=== PATIENT | female | born 1960 | race Caucasian/White ===

== ENCOUNTER → 2017-10-17 | Outpatient (CLI) | payer MEDICARE ==
--- NOTE | 2017-10-17 13:21 | CT ---
EXAMINATION TYPE: CT chest wo con DATE OF EXAM: 10/17/2017 COMPARISON: None HISTORY: Other dyspnea CT DLP: 281 mGycm High-resolution noncontrast CT of the chest was performed with the patient in the prone and supine po sitions. Lung and mediastinal window settings are submitted. The lungs appear to be well-aerated. I do not see evidence for fibrotic change. There is no eviden ce for bronchiectasis, groundglass infiltrate, nodule or mass. No pleural effusion is identified. I do not see evidence for hilar or mediastinal mass or adenopathy. IMPRESSION: No significant abnormality is seen. Correlate clinically.
== END | disposition home or self-care (01) ==
LOC: RADCTMAIN 12:29
PROVIDERS: ATTEND Internal Medicine Critical Care Medicine
DX: R06.09 Other forms of dyspnea (principal)
CPT/HCPCS: 71250

== ENCOUNTER 2018-07-30 08:21 | Day surgery (SDC) | payer MEDICARE ==
[~2018-07-30 08:21] MED LIST: Pre Op ABX Message 1 EACH MISC MISCELLANE ONE
[2018-07-30 09:07] VITALS: RESP 16; TEMP 98.1
[2018-07-30] MEDS ORDERED: LIDOCAINE 1% 20 ML VIAL (10MG/ML) FOR IV START SQ ONE (09:07)
[2018-07-30] MEDS ORDERED: LACTATED RINGERS 1,000 ML IV ONE (09:07)
[2018-07-30] MEDS ORDERED: PROPOFOL 10 MG/ML 20 ML VIAL IV ONE (09:18)
[2018-07-30] MEDS ORDERED: LIDOCAINE 1% INJ 10MG/ML (20 ML MDV) ONE (09:18)
[2018-07-30] MEDS ORDERED: MIDAZOLAM 2 MG/2 ML VIAL ONE (09:18)
[2018-07-30] MEDS ORDERED: fentaNYL (PF) 50 MCG/ML 2 ML AMP ONE (09:18)
[2018-07-30] MEDS ORDERED: BUPIVACAINE (PF) 0.5% 30 ML VIAL SQ ONE (09:20)
[2018-07-30] MEDS ORDERED: LIDOCAINE 2% INJ 20 MG/ML SQ ONE (09:20)
[2018-07-30 09:21] LABS: Glucose,Whole Blood 105 mg/dL (75-99)
[2018-07-30] MEDS ORDERED: MIDAZOLAM 2 MG/2 ML VIAL IV PRN (09:54)
[2018-07-30] MEDS ORDERED: ONDANSETRON 4 MG/2 ML VIAL IVP ONE (09:54)
[2018-07-30] MEDS ORDERED: DEXAMETHASONE SOD PHOSPHATE 10 MG/ML 1 ML VIAL IV ONE (09:54)
[2018-07-30] MEDS ORDERED: LACTATED RINGERS 1,000 ML IV SCH (09:54)
[2018-07-30] MEDS ORDERED: HYDROmorphone 0.5 MG/0.5 ML SYRINGE IVP PRN (09:54)
[2018-07-30] MEDS ORDERED: SCOPOLAMINE 1.5MG/72HR PATCH TRANSDERM ONE (09:54)
[2018-07-30 10:08] LABS: Glucose,Whole Blood 122 mg/dL (75-99)
[2018-07-30 10:19] VITALS: PULSE 75
[2018-07-30 10:23] VITALS: BP 132/68
--- NOTE | 2018-07-30 22:49 | OP ---
OPERATIVE REPORT DATE OF SURGERY: 07/30/2018 PREOP DIAGNOSIS: Bilateral middle trigger fingers. POSTOPERATIVE DIAGNOSIS: Bilateral middle trigger fingers. PROCEDURES: Bilateral middle trigger finger release. The following procedure was done identically for each hand with a separate setup and a separate injection of 5 mL combinations Xylocaine and Marcaine both without epinephrine. PROCEDURE: A transverse incision was made in the proximal skin crease of the middle finger. Blunt dissection was taken through the subcutaneous tissue to identify the neurovascular bundles. They were kept in view and gently retracted out of harm?s way while a longitudinal release of the A1 bhavna was performed. The flexor pollicis longus was examined and slight swelling was noted but the tendon was intact. The tendon was gently retracted from the wound to ensure no adhesion. The wound was then thoroughly irrigated, tourniquet released. Hemostasis was acquired and the skin was closed with 5-0 nylon suture. Soft bulky dressing applied. The patient was taken to the recovery room in satisfactory condition. MMMAXX / BRIANNAN: [id number] /
== END 2018-07-30 10:38 | disposition home or self-care (01) ==
LOC: OR 08:21
PROVIDERS: ATTEND Orthopaedic Surgery Hand Surgery
DX: M65.332 Trigger finger, left middle finger (principal); M65.331 Trigger finger, right middle finger; E03.9 Hypothyroidism, unspecified; I11.9 Hypertensive heart disease without heart failure; E11.9 Type 2 diabetes mellitus without complications; J98.4 Other disorders of lung; H91.90 Unspecified hearing loss, unspecified ear; K21.9 Gastro-esophageal reflux disease without esophagitis; F32.9 Major depressive disorder, single episode, unspecified; E66.01 Morbid (severe) obesity due to excess calories; J44.9 Chronic obstructive pulmonary disease, unspecified; M34.9 Systemic sclerosis, unspecified; E78.5 Hyperlipidemia, unspecified; K85.90 Acute pancreatitis without necrosis or infection, unspecified; Z79.4 Long term (current) use of insulin; Z79.899 Other long term (current) drug therapy; Z79.890 Hormone replacement therapy; Z68.42 Body mass index [BMI] 45.0-49.9, adult
CPT/HCPCS: 26055; J2001 ×2; J2250; J3010; J2704

== ENCOUNTER 2022-10-24 05:48 | Day surgery (SDC) | payer MEDICARE ==
[2022-10-19 14:41] VITALS: BMI 48.5
[~2022-10-24 05:48] MED LIST changes: +ACETAMINOPHEN TAB 500 MG TAB PO PRN; +GABAPENTIN 300 MG CAP PO PRN; +MELOXICAM 7.5 MG TAB PO PRN; -Pre Op ABX Message 1 EACH MISC MISCELLANE ONE; +TRANEXAMIC 1,000 MG/100ML-NACL 1,000 MG in SALINE 1 100ML.BAG IVPB PRN; +ceFAZolin 3 GM in SODIUM CHLORIDE 0.9% 100 ML IVPB PRN
[2022-10-24] MEDS ORDERED: ONDANSETRON 4 MG/2 ML VIAL IVP ONE (05:50)
[2022-10-24] MEDS ORDERED: DEXAMETHASONE SOD PHOSPHATE 4 MG/ML 1 ML VIAL IV ONE (05:50)
[2022-10-24] MEDS ORDERED: LIDOCAINE 1% (10MG/ML) FOR IV START INTRADERMA PRN (05:50)
[2022-10-24] MEDS: LACTATED RINGERS 1,000 ML IV SCH (05:59)
[2022-10-24 06:32] LABS: Glucose,Whole Blood 165 mg/dL (70-110)
[2022-10-24] MEDS ORDERED: MIDAZOLAM 2 MG/2 ML VIAL IVP ONE (06:42)
[2022-10-24] MEDS ORDERED: MIDAZOLAM 2 MG/2 ML VIAL IV PRN (07:00)
[2022-10-24] MEDS ORDERED: HYDROmorphone 0.5 MG/0.5 ML SYRINGE IVP PRN ×2 (07:00→09:13)
[2022-10-24] MEDS ORDERED: ceFAZolin 1,000 MG in SODIUM CHLORIDE 0.9% 1,000 ML IRRIGATION ONE (07:02)
[2022-10-24] MEDS ORDERED: LACTATED RINGERS 1,000 ML IV ONE (08:30)
[2022-10-24 09:13] LABS: Glucose,Whole Blood 238 mg/dL (70-110)
[2022-10-24] MEDS ORDERED: NA PHOS,M-B/NA PHOS,DI-BA 133 ML ENEMA RECTAL PRN (09:13)
[2022-10-24] MEDS ORDERED: ONDANSETRON 4 MG/2 ML VIAL IVP PRN (09:13)
[2022-10-24] MEDS ORDERED: HYDROmorphone 1 MG/ML 1 ML SYRINGE IVP PRN (09:13)
[2022-10-24] MEDS ORDERED: bisacodyL 10 MG SUPP RECTAL PRN (09:13)
[2022-10-24] MEDS ORDERED: MAGNESIUM HYDROXIDE 2,400 MG/30 ML CUP PO PRN (09:13)
[2022-10-24] MEDS ORDERED: NALOXONE 0.4 MG/ML 1 ML VIAL IV PRN (09:13)
[2022-10-24] MEDS ORDERED: HYDROcodone/APAP 7.5-325MG 1 EACH TAB PO PRN (09:15)
[2022-10-24] MEDS ORDERED: ROPIVACAINE 1,100 MG, SODIUM CHLORIDE 0.9% 500 ML 330 ML, EMPTY PAIN BALL 1 EACH MISCELLANE PRN ×2 (09:15)
[2022-10-24] MEDS ORDERED: INSULIN ASPART (NovoLOG) 100 UNIT/ML VIAL SQ ONE ×4 (09:49→18:29)
--- NOTE | 2022-10-24 11:25 | P.OP ---
Date of Procedure: 10/24/22 Preoperative Diagnosis: Severe osteoarthritis left knee Postoperative Diagnosis: Severe osteoarthritis left knee Procedure(s) Performed: Robotic-assisted left total knee arthroplasty with the [employer] robotic system Implants: 1. [employer] triathlon cruciate retaining femoral component left size 4 2. [employer] triathlon total knee universal tibial baseplate size 4 3. Jared triathlon X3 tibial bearing insertCS size 4, 9 mm 4. Jared triathlon X3 asymmetric patella size A 32, 10 mm 5. Palacos R bone cement 6. Articulation is cobalt chrome on polyethylene Anesthesia: spinal Surgeon: Saúl Faye Buffer Operator #1: Dai Rosa Estimated Blood Loss (ml): 40 Pathology: none sent Condition: stable Disposition: PACU Indications for Procedure: The patient's knee is end-stage, and conservative management has failed. The operation of knee replacement has been discussed at length in the office, as well as potential risks and complications. These are inclusive of, but not limited to: Infection, bleeding, scarring, discomfort, stiffness, blood vessel and nerve damage, need for further surgery, failure to relieve symptoms, persistence, recurrence, or worsening of problems, loosening, dislocation, wear, blood clot, pulmonary embolism, , gait dysfunction, stiffness, and other risks as discussed in the office. Patient elects to proceed and the consent form has been signed. Operative Findings: The operative findings are consistent with severe osteoarthritis of the left knee Description of Procedure: The patient was seen in the preoperative area, the consent was reviewed and the operative site was marked with a skin marker. The patient verified the procedure and the operative site. An adductor canal pain catheter and an iPACK block were placed by anesthesia in the preoperative area. The patient was then brought to the operating room and positioned on the operating room table in the supine position. Preoperative antibiotics and a gram of tranexamic acid were given intravenously. A spinal anesthetic was administered by the anesthesia department. Care was taken to make sure that all pressure points were adequately padded. A tourniquet was placed on the upper thigh and the lower extremity was prepped with ChloraPrep and draped in usual sterile fashion. A universal time-out was then performed which confirmed the patient's name, surgical site, ALLERGIES, and consent. The lower extremity was then exsanguinated and tourniquet was inflated to 250 mmHg. A standard anterior midline approach to the knee was performed. The skin and subcutaneous tissue were sharply dissected down to the patellar tendon. A medial parapatellar arthrotomy was then performed. The knee was then extended, the patellar was everted, and the knee was flexed. The infra-patellar fat pad was removed in order to enhance exposure. The anterior horns of both menisci were excised, and a release was performed to the posterior medial aspect of the knee. On gross visual inspection, there was complete loss of articular cartilage in the medial and patellofemoral joint spaces. There was also significant cartilage damage in the lateral compartment. There were multiple periarticular osteophytes globally about the knee. 2 Steinmann pins were placed in the distal medial femur for the robotic tracking device. An additional 2 Steinmann pins were placed in the proximal tibia for the tibial robotic tracking device. Next, the knee was then registered with the NoDaysOff device using the appropriate tracking devices and protocols. Next, using the Jameson robotic arm, the cuts for the femur and tibia were performed. The remaining bone and osteophytes were then removed with a Ronguer. Any remaining menisci or bone was also removed. The femoral trial was placed. The tibial trial was placed with the appropriate- sized insert. The knee was able to fully extend and flex to 130 and was stable throughout all range of motion. The balance in the knee was also checked with the NoDaysOff robotic device. The knee was then extended and the patella was everted. Patella was then measured, and then using an osteotomy guide, the patella was cut at the appropriate level. The patellar component was sized. The patellar drill guide was placed and the patella was drilled. The patella trial was then placed. The knee was then taken through range of motion with the patella trial and the patella tracked normally using the no thumbs technique. The patella trial was then removed. The knee was then flexed and lug holes were drilled through the femoral trial and the femoral trial was then removed. The tibial was then re-exposed, and the tibial broach guide was then pinned in place after it was set for the appropriate rotation to allow for the most coverage without overhang. The tibia was then reamed and broached. The tracking devices and the Steinmann pins were then removed from the distal femur and proximal tibia. The cut surfaces of bone were then irrigated with pulsatile lavage. The knee was also irrigated with Irrisept solution. The components were then opened, the cement was mixed. Cement was placed on the backside of the femoral, tibial, and patellar components. Cement was then applied to the tibial surface and pressurized into the surface using finger pressurization technique. The tibial component was then applied and excess ce ment was removed after it was impacted securely noted to be flush with the cut surface. In similar fashion, the cement was applied to the cut femoral surface, pressurized and using finger pressurization the component was impacted in place. Excess cement was removed. The polyethylene spacer was then implanted and locked into position. Patellar component was then applied in a similar technique and the patellar clamp was used to hold patella in place while the cement hardened. The knee was held in full extension while the cement hardened. Once the cement had fully hardened, the knee was reinspected. Any other cement extrusion was removed the final range of motion testing showed range of motion from 0-130 with excellent stability, both medial and laterally and appropriate alignment of the leg. Patella tracked normally[default value] After the cemented hardened, the tourniquet was released and hemostasis was obtained. A second gram of transexamic acid was given intravenously. The knee was again irrigated. The knee was again taken through range of motion and found to be stable throughout all range of motion of 0-130, and the patella tracked normally. The fascia was then closed with 0 Vicryl followed by #2 strata fix suture. The subcutaneous tissue was closed with 3-0 Vicryl and 3-0 strata fix. Exofin glue was used for the skin and placed with the knee in flexion. After the glue had dried, and Optafoam silver impregnated dressing was applied. A lightly compressive dressing was applied using web roll and Adolfo wrap. Patient was then transferred to the stretcher and taken to recovery room in stable condition. Sponge and needle counts were correct. The family assistant TYRONE Alcala was required due the complexity surgery and the need for a skilled surgical scrub tech. She assisted in positioning, draping, retraction, and closure of the wound.
[2022-10-24] MEDS ORDERED: HYDROmorphone 1 MG/ML 1 ML SYRINGE IVP ONE (12:21)
[2022-10-24 13:22] LABS: Glucose,Whole Blood 313 mg/dL (70-110)
--- NOTE | 2022-10-24 15:32 | P.ANPRN ---
Procedure Note - Anesthesia - Nerve Block Performed Left Adductor Canal Infusion Time Out Performed: Yes Date of Procedure: 10/24/22 Procedure Start Time: 06:41 Procedure Stop Time: 06:52 Location of Patient: PreOp Indication: Acute Post-Operative Pain, Requested by Surgeon Sedation Type: Sedate with meaningful contact maintained Preparation: Sterile Prep, Sterile Dressing Position: Supine Catheter: Indwelling Needle Types: Pajunk Needle Gauge: 21 Ultrasound used to visualize needle placement: Yes Ultrasound used to observe medication spread: Yes Blood Aspirated: No Pain Paresthesia on Injection Noted: No Resistance on Injection: Normal Image Stored and Saved: Yes Events: Uneventful and Well Tolerated (ropi .5% 20cc plus dexamethasone 4mg)
--- NOTE | 2022-10-24 15:34 | P.ANPRN ---
Procedure Note - Anesthesia - Nerve Block Performed Left iPack Single Time Out Performed: Yes Date of Procedure: 10/24/22 Procedure Start Time: 06:53 Procedure Stop Time: 06:55 Location of Patient: PreOp Indication: Acute Post-Operative Pain, Requested by Surgeon Sedation Type: Sedate with meaningful contact maintained Preparation: Sterile Prep Position: Supine Needle Types: Pajunk Needle Gauge: 21 Ultrasound used to visualize needle placement: Yes Ultrasound used to observe medication spread: Yes Blood Aspirated: No Pain Paresthesia on Injection Noted: No Resistance on Injection: Normal Image Stored and Saved: Yes Events: Uneventful and Well Tolerated (ropi .5% 20cc plus dexamethasone 4mg)
[2022-10-24] MEDS: HYDROcodone/APAP 7.5-325MG 1 EACH TAB PO PRN (16:02)
[2022-10-24] MEDS: ceFAZolin 3 GM in SODIUM CHLORIDE 0.9% 100 ML IVPB SCH ×2 (16:03→21:53)
[2022-10-24 18:11] LABS: Glucose,Whole Blood 429 mg/dL (70-110)
[2022-10-24] MEDS ORDERED: DEXTROSE 50% SYRINGE 50 ML IVP PRN ×2 (18:27)
[2022-10-24] MEDS: SODIUM CHLORIDE 0.9% 1,000 ML IV SCH (18:51)
--- NOTE | 2022-10-24 19:37 | P.CONS ---
History of Present Illness - Reason for Consult Consult date: 10/24/22 Medical management Requesting physician: Saúl Faye - Chief Complaint Left knee surgery - History of Present Illness This is a pleasant 62-year-old patient who follows with Dr. Aureliano Alejandro. Chronic stable medical conditions include asthma, diabetes, GERD, hyperlipidemia, obstructive sleep apnea uses CPAP, hypothyroid, scleroderma with no medications,. Patient has undergone left total knee arthroplasty. Postprocedure pain is controlled. No nausea vomiting. Later the nurse called me that patient's insulin pump was saying not working. An Accu-Chek's were reading 429. Review of systems: GEN.: None EYES: None HEENT: None NECK: None RESPIRATORY: None CARDIOVASCULAR: None GASTROINTESTINAL: None GENITOURINARY: None MUSCULOSKELETAL: Joint pains LYMPHATICS: None HEMATOLOGICAL: None PSYCHIATRY: None NEUROLOGICAL: None. Past medical history to include: Asthma, diabetes, GERD, hyperlipidemia, osteoarthritis, obstructive sleep apnea, hypothyroid, scleroderma, migraines, Lynette-en-Y surgery 15 years ago Social history: No smoking or alcohol. Physical examination: VITAL SIGNS: 97.8, 87, 18, 135/74, 99% on 2 L GENERAL: BMI 49.6, sitting on bed awake comfortable. EYES: Pupils equal. Conjunctiva normal. HEENT: External appearance of nose and ears normal, oral cavity grossly normal. NECK: JVD not raised; masses not palpable. HEART: First and second heart sounds are normal; no edema. LUNGS: Respiratory rate normal; clear to auscultation. ABDOMEN: Soft, nontender, liver spleen not palpable, no masses palpable. PSYCH: Alert and oriented x3; mood and affect normal. MUSCULOSKELETAL:No Clubbing/cyanosis;muscles-grossly intact. Dressing over the left knee. Evidence of OA. NEUROLOGICAL: Cranial nerves grossly intact; no facial asymmetry, power and sensation grossly intact. LYMPHATICS: No lymph nodes palpable in the axilla and neck INVESTIGATIONS, reviewed in the clinical context: Accu-Cheks: 313, 429 Labs from 09/19/2022: White count 10.4 hemoglobin 12.7 platelets 264 potassium 4.5 creatinine 0.9 Assessment and plan: -Left total knee arthroplasty Aspirin 325 mg twice a day for DVT prophylaxis. Pain control. -Diabetes mellitus type 2 chronically on insulin. Uncontrolled with hyperglycemia. As patient insulin pump is malfunctioning. Start the patient on 36 units of Levemir tonight. One-time dose of 20 units of Humalog. And 8 units with meals. Sliding scale insulin. BMP serum acetone ordered. -Morbid obesity BMI 49.6 Patient's previously had a Lynette-en-Y bypass 15 years ago. Weight loss measures. -Primary osteoarthritis Pain medications as needed -Depression not otherwise specified Celexa 40 mg a day -Essential hypertension Vasotec 20 mg twice a day. -Hypothyroid Levothyroxine 150 g a day -Hyperlipidemia Crestor 10 mg a day -Moderate persistent asthma Flovent discus one puff twice a day. Singulair 10 mg a day. Care was discussed with the patient. Questions answered. Nursing to contact patient's family to try gait insulin pump papers in the hospital. If not patient's coverstitch binder Dr. Nathaniel Moreland to be called in the morning to get instructions regarding the pump. Thank you Dr. Faye . Past Medical History Past Medical History: Asthma, COPD, Diabetes Mellitus, GERD/Reflux, Hyperlipidemia, Osteoarthritis (OA), Sleep Apnea/CPAP/BIPAP, Thyroid Disorder Additional Past Medical History / Comment(s): "Slow digestive tract". Hx pancreatitis. Scleroderma. Migraines. CPAP use. 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 Past Anesthesia/Blood Transfusion Reactions: Family History of Problems w/ Anesthesia, Motion Sickness, Postoperative Nausea & Vomiting (PONV) Additional Past Anesthesia/Blood Transfusion Reaction / Comm: Severe Vertigo. Son went into a coma at age 21, with outpatient surgery, was in ICU for 5 days, has only had twilight since then. Past Psychological History: Depression Smoking Status: Never smoker Past Alcohol Use History: None Reported Past Drug Use History: None Reported - Past Family History Father Family Medical History: Cancer Additional Family Medical History / Comment(s): Prostate cancer. Sister(s) Family Medical History: Cancer Additional Family Medical History / Comment(s): Kidney cancer, skin cancer, leukemia. Mother Family Medical History: Cancer Additional Family Medical History / Comment(s): Colon cancer. Medications and Allergies Home Medications Medication Instructions Recorded Confirmed Type Aspirin EC [Ecotrin Low Dose] 81 mg PO QAM 07/30/18 10/19/22 History Citalopram Hydrobromide [CeleXA] 40 mg PO QAM 07/30/18 10/24/22 History Levothyroxine Sodium 150 mcg PO QAM 07/30/18 10/24/22 History Advair (Unknown Dose) 2 puff INHALATION QAM 10/19/22 10/24/22 History Allergy Relief (Otc) 1 tab PO DAILY 10/19/22 10/24/22 History Calcium, Magnesium, Zinc 1 tab PO DAILY 10/19/22 10/19/22 History Enalapril [Vasotec] 20 mg PO BID 10/19/22 10/24/22 History Fluticasone Propionate [Flovent 1 inhalation INHALATION BID 10/19/22 10/24/22 History Diskus] Insulin Aspart (For Pump) [NovoLOG 0.01 unit SQ-PUMP CONTINUOUS 10/19/22 10/24/22 History (For Pump)] Meclizine [Antivert] 25 mg PO DIRECTED PRN 10/19/22 10/24/22 History Montelukast Sodium 10 mg PO QAM 10/19/22 10/24/22 History Multivitamins, Thera [Multivitamin 1 tab PO DAILY 10/19/22 10/19/22 History (formulary)] Rosuvastatin Calcium 10 mg PO QAM 10/19/22 10/24/22 History Vitamin D (Unknown Dose) 1 tab PO QAM 10/19/22 10/19/22 History Aspirin 325 mg PO BID #60 tab 10/24/22 Rx HYDROcodone/APAP 7.5-325MG [[place] 1 - 2 tab PO Q6H PRN #32 tab 10/24/22 Rx 7.5-325] Sennosides [Senokot] 2 tab PO DAILY PRN #60 tablet 10/24/22 Rx Allergies Allergy/AdvReac Type Severity Reaction Status Date / Time No Known Allergies Allergy Verified 10/24/22 06:03 Physical Exam Vitals: Vital Signs Temp Pulse Resp BP Pulse Ox 10/24/22 14:17 98 10/24/22 14:05 97.8 F 87 18 135/74 99 10/24/22 13:30 82 18 148/66 98 10/24/22 13:00 87 17 138/63 98 10/24/22 12:30 83 16 149/65 99 10/24/22 12:00 82 16 136/63 98 10/24/22 11:30 72 16 123/56 97 10/24/22 11:00 72 16 117/58 98 10/24/22 10:30 71 16 123/58 99 10/24/22 10:00 74 16 117/56 94 L 10/24/22 09:40 70 16 128/60 100 10/24/22 09:25 71 16 122/54 100 10/24/22 09:10 97.6 F 70 16 134/59 100 10/24/22 06:55 73 18 137/63 99 10/24/22 06:21 97.3 F L 72 18 151/66 99 Intake and Output 10/24/22 10/24/22 10/24/22 06:59 14:59 22:59 Intake Total 100 1701 720 Output Total 40 Balance 100 1661 720 Intake: IV 100 1701 Oral 720 Output: Estimated Blood Loss 40 Other: # Voids 1 Weight 143.7 kg 143.7 kg Results Labs: Abnormal Lab Results - Last 24 Hours (Table) 10/24/22 10/24/22 10/24/22 Range/Units 06:29 09:10 13:20 POC Glucose (mg/dL) 165 H 238 H 313 H (70-110) mg/dL 10/24/22 Range/Units 18:09 POC Glucose (mg/dL) 429 H (70-110) mg/dL
[2022-10-24] MEDS: HYDROmorphone 0.5 MG/0.5 ML SYRINGE IVP PRN (19:48)
[2022-10-24] MEDS: FLUTICASONE 44 MCG INHALER INHALATION SCH (20:42)
[2022-10-24] MEDS ORDERED: INSULIN DETEMIR (LEVEMIR) 100 UNIT/ML SYR SQ SCH (21:00)
[2022-10-24 21:20] LABS: African American GFR (CKD) 83 (>60 ml/min/1.73 sqM); Anion Gap 11 mmol/L; Blood Urea Nitrogen 18 mg/dL (7-17); Calcium 8.9 mg/dL (8.4-10.2); Carbon Dioxide 23 mmol/L (22-30); Chloride 99 mmol/L (98-107); Glucose 402 mg/dL (74-99); Non-African American GFR(CKD) 72 (>60 ml/min/1.73 sqM); Potassium 4.9 mmol/L (3.5-5.1); Sodium 133 mmol/L (137-145)
[2022-10-24 21:24] LABS: Glucose,Whole Blood 335 mg/dL (70-110)
[2022-10-24] MEDS: INSULIN ASPART (NovoLOG) 100 UNIT/ML VIAL SQ SCH (21:44)
[2022-10-24] MEDS: lisinopriL 20 MG TAB PO SCH (21:45)
[2022-10-24] MEDS: SENNOSIDES-DOCUSATE SODIUM 1 EACH TAB PO SCH (21:45)
[2022-10-24] MEDS: ASPIRIN 325 MG TAB PO SCH (21:45)
[2022-10-25] MEDS: SODIUM CHLORIDE 0.9% 1,000 ML IV SCH ×2 (01:06→15:31)
[2022-10-25] MEDS: HYDROmorphone 0.5 MG/0.5 ML SYRINGE IVP PRN ×4 (01:59→21:49)
[2022-10-25] MEDS: LEVOTHYROXINE 75 MCG TAB PO SCH (06:18)
[2022-10-25 06:25] LABS: Glucose,Whole Blood 265 mg/dL (70-110)
[2022-10-25] MEDS: LACTATED RINGERS 1,000 ML IV SCH (06:30)
[2022-10-25] MEDS: INSULIN ASPART (NovoLOG) 100 UNIT/ML VIAL SQ SCH ×7 (06:43→18:01)
--- NOTE | 2022-10-25 07:04 | P.PN ---
Progress Note - Text Progress Note Date: 10/25/22 Postoperative day # 1 status post total knee arthroplasty, and adductor canal catheter placed for postoperative analgesia, currently at ropivacaine 0.2% 8 mL per hour and continuous infusion, visual analogue scale is 4-5/10, patient using oral pain medication for breakthrough pain. Assessment and plan= Acute postoperative pain, adductor canal catheter for pain control, pain is well controlled we'll continue the same management.
[2022-10-25] MEDS: SYMBICORT 160-4.5 MCG INHALER INHALATION SCH (07:44)
[2022-10-25] MEDS: FLUTICASONE 44 MCG INHALER INHALATION SCH ×2 (07:45→20:49)
[2022-10-25 07:53] LABS: African American GFR (CKD) >90 (>60 ml/min/1.73 sqM); Anion Gap 6 mmol/L; Blood Urea Nitrogen 15 mg/dL (7-17); Carbon Dioxide 25 mmol/L (22-30); Chloride 102 mmol/L (98-107); Glucose 261 mg/dL (74-99); Non-African American GFR(CKD) >90 (>60 ml/min/1.73 sqM); Potassium 4.5 mmol/L (3.5-5.1); Sodium 133 mmol/L (137-145)
[2022-10-25] MEDS: ASPIRIN 81 MG PO SCH (08:16)
[2022-10-25] MEDS: lisinopriL 20 MG TAB PO SCH ×2 (08:18→21:49)
[2022-10-25] MEDS: ASPIRIN 325 MG TAB PO SCH ×2 (08:18→21:49)
[2022-10-25] MEDS: MONTELUKAST 10 MG TAB PO SCH (08:18)
[2022-10-25] MEDS: MULTIVITAMINS, THERA 1 EACH TAB PO SCH (08:18)
[2022-10-25] MEDS: ATORVASTATIN 20 MG TAB PO SCH (08:18)
[2022-10-25] MEDS: HYDROcodone/APAP 7.5-325MG 1 EACH TAB PO PRN ×2 (08:18→15:31)
[2022-10-25] MEDS: CITALOPRAM HYDROBROMIDE 20 MG TAB PO SCH (08:18)
--- NOTE | 2022-10-25 11:25 | P.PN ---
Subjective Progress Note Date: 10/25/22 This is a 62-year-old female who is status post robotic-assisted left total knee arthroplasty with the [employer] robotic system. This is postoperative day #1 and patient is seen and evaluated at bedside with Dr. Saúl Faye. Patient states that she is doing well and she denies any new complaints today. Objective - Vital Signs Vital signs: Vital Signs Temp 97.6 F 10/25/22 07:13 Pulse 85 10/25/22 07:13 Resp 18 10/25/22 07:13 BP 121/73 10/25/22 07:13 Pulse Ox 96 10/25/22 07:13 FiO2 Intake & Output 10/24/22 10/25/22 10/25/22 18:59 06:59 18:59 Intake Total 2421 Output Total 40 Balance 2381 Weight 143.7 kg Intake: IV 1701 Oral 720 Output: Estimated Blood Loss 40 Other: # Voids 1 0 - Exam Vital signs are stable. Patient is in no acute distress and is alert and oriented 3. Calf is soft and nontender to palpation. Dressing is clean, dry, and intact. Patient has full foot and ankle motion without pain or difficulty. Sensation intact. Neurovascular status and circulatory status are intact. - Labs CBC & Chem 7: 10/25/22 06:40 Labs: Abnormal Lab Results - Last 24 Hours (Table) 10/24/22 10/24/22 10/24/22 Range/Units 13:20 18:09 20:10 Sodium 133 L (137-145) mmol/L BUN 18 H (7-17) mg/dL Glucose 402 H (74-99) mg/dL POC Glucose (mg/dL) 313 H 429 H (70-110) mg/dL 10/24/22 10/25/22 10/25/22 Range/Units 21:22 06:23 06:40 Sodium 133 L (137-145) mmol/L BUN (7-17) mg/dL Glucose 261 H (74-99) mg/dL POC Glucose (mg/dL) 335 H 265 H (70-110) mg/dL Assessment and Plan Assessment: Status post robotic-assisted left total knee arthroplasty. (1) Osteoarthritis of left knee Current Visit: Yes Status: Acute Code(s): M17.12 - UNILATERAL PRIMARY OSTEOARTHRITIS, LEFT KNEE SNOMED Code(s): 353543575412240 (2) Status post total left knee replacement Current Visit: Yes Status: Acute Code(s): Z96.652 - PRESENCE OF LEFT ARTIFICIAL KNEE JOINT SNOMED Code(s): 8720931580054 Plan: #1 Continue with routine postoperative care and pain control, leave dressing in place for seven days. #2 Anticoagulation with aspirin. #3 Physical therapy today. #4 Appreciate input from medicine. #5 Anticipate discharge home with home care likely tomorrow.
[2022-10-25 11:45] LABS: Glucose,Whole Blood 292 mg/dL (70-110)
[2022-10-25 12:46] LABS: Basophils # (A) 0.02 X 10*3/uL (0.00-0.10); Basophils % (A) 0.1 %; Eosinophils # (A) 0.01 X 10*3/uL (0.04-0.35); Eosinophils % (A) 0.1 %; HCT 35.3 % (37.2-46.3); HGB 11.4 d/dL (12.0-15.0); Lymphocytes # (A) 2.92 X 10*3/uL (0.90-5.00); Lymphocytes % (A) 19.1 %; MCH 28.6 pg (27.0-32.0); MCHC 32.3 d/dL (32.0-37.0); MCV 88.5 FL (80.0-97.0); Mean Platelet Volume 11.5 FL (9.5-12.2); Monocytes # (A) 1.42 X 10*3/uL (0.20-1.00); Monocytes % (A) 9.3 %; NRBC Per 100 WBC 0 X 10*3/uL (0.00-0.01); Neutrophils # (A) 10.87 X 10*3/uL (1.80-7.70); Neutrophils % (A) 70.9 %; Platelet Count 274 X 10*3/uL (140-440); RBC 3.99 X 10*6/uL (4.10-5.20); RDW 13.8 % (11.5-14.5); WBC 15.32 X 10*3/uL (4.50-10.00)
--- NOTE | 2022-10-25 14:45 | XR ---
EXAMINATION TYPE: XR knee limited LT DATE OF EXAM: 10/24/2022 COMPARISON: NONE TECHNIQUE: Two views submitted HISTORY: Post op FINDINGS: There is a prosthetic knee in near anatomic alignment. There is soft tissue edema and soft tissue e mphysema compatible with recent surgery. IMPRESSION: 1. Postoperative change. Appears in near-anatomic alignment
[2022-10-25 16:55] LABS: Glucose,Whole Blood 325 mg/dL (70-110)
--- NOTE | 2022-10-25 17:29 | P.PN ---
Progress Note - Text Progress Note Date: 10/25/22 - Chief Complaint Left knee surgery - History of Present Illness This is a pleasant 62-year-old patient who follows with Dr. Aureliano Alejandro. Chronic stable medical conditions include asthma, diabetes, GERD, hyperlipidemia, obstructive sleep apnea uses CPAP, hypothyroid, scleroderma with no medications,. Patient has undergone left total knee arthroplasty. Postprocedure pain is controlled. No nausea vomiting. Later the nurse called me that patient's insulin pump was saying not working. An Accu-Chek's were reading 429. October 25: Significant pain overnight in the left knee. Some nausea. Tired. Some dizziness. Little breakfast today. Adjust dose of insulin. Active Medications Hydrocodone Bitart/Acetaminophen (Hydrocodone/Apap 7.5-325mg 1 Each Tab) 2 each PO Q6H PRN PRN Reason: Pain Scale 6 to 10 Stop: 11/23/22 09:16 Last Admin: 10/25/22 15:31 Dose: 2 each Hydrocodone Bitart/Acetaminophen (Hydrocodone/Apap 7.5-325mg 1 Each Tab) 1 each PO Q6H PRN PRN Reason: Pain Scale 1 to 5 Stop: 11/23/22 09:16 Aspirin (Aspirin 325 Mg Tab) 325 mg PO BID [facility] Stop: 11/23/22 21:01 Last Admin: 10/25/22 08:18 Dose: 325 mg Aspirin (Aspirin 81 Mg) 81 mg PO QAM [facility] Last Admin: 10/25/22 08:16 Dose: Not Given Atorvastatin Calcium ([facility]vastatin 20 Mg Tab) [facility] [place] Admin: 10/25/22 08:18 Dose: 20 mg Bisacodyl (Bisacodyl 10 Mg Supp) 10 mg RECTAL DAILY PRN PRN Reason: Constipation Stop: 11/23/22 09:14 Budesonide/Formoterol Fumarate (Symbicort 160-4.5 Mcg Inhaler) 2 puff INHALATION RT-DAILY [facility] Last Admin: 10/25/22 07:44 Dose: 2 puff Citalopram Hydrobromide (Citalopram Hydrobromide 20 Mg Tab) 40 mg PO QAM [facility] Last Admin: 10/25/22 08:18 Dose: 40 mg Ropivacaine 1,100 mg/ Sodium Chloride 330 ml/ Bandage/Support Products 1 each 0 mg MISCELLANE Q2H PRN PRN Reason: Breakthrough Pain Stop: 11/23/22 09:16 Last Admin: 10/24/22 09:44 Dose: 1,100 mg Dextrose/Water (Dextrose 50% Syringe 50 Ml) 25 ml IVP PER PROTOCOL PRN; Protocol PRN Reason: Hypoglycemia Dextrose/Water (Dextrose 50% Syringe 50 Ml) 50 ml IVP PER PROTOCOL PRN; Protocol PRN Reason: Hypoglycemia Fluticasone Propionate (Fluticasone 44 Mcg Inhaler) 1 puff INHALATION RT-BID [facility] Last Admin: 10/25/22 07:45 Dose: 1 puff Hydromorphone HCl (Hydromorphone 1 Mg/Ml 1 Ml Syringe) 1 mg IVP Q3HR PRN PRN Reason: Pain Scale 7 to 10 Stop: 11/23/22 09:14 Hydromorphone HCl (Hydromorphone 0.5 Mg/0.5 Ml Syringe) 0.25 mg IVP Q3HR PRN PRN Reason: Pain Scale 1 to 3 Stop: 11/23/22 09:14 Hydromorphone HCl (Hydromorphone 0.5 Mg/0.5 Ml Syringe) 0.5 mg IVP Q3HR PRN PRN Reason: Pain Scale 4 to 6 Stop: 11/23/22 09:14 Last Admin: 10/25/22 11:10 Dose: 0.5 mg Lactated Ringer's (Lactated Ringers) 1,000 mls @ 20 mls/hr IV .Q24H [facility] Stop: 11/23/22 05:51 Last Admin: 10/25/22 06:30 Dose: Not Given Sodium Chloride (Saline 0.9%) 1,000 mls @ 70 mls/hr IV .[id number] [facility] Stop: 11/23/22 09:16 Last Admin: 10/25/22 15:31 Dose: Not Given Insulin Aspart (Insulin Aspart (Novolog) 100 Unit/Ml Vial) 0 unit SQ ACHS [facility]; Protocol Last Admin: 10/25/22 13:03 Dose: 6 unit Insulin Aspart (Insulin Aspart (Novolog) 100 Unit/Ml Vial) 8 unit SQ AC-TID [facility] Last Admin: 10/25/22 13:03 Dose: 8 unit Insulin Detemir (Insulin Detemir (Levemir) 100 Unit/Ml Syr) 36 unit SQ HS [facility] Last Admin: 10/24/22 21:45 Dose: 36 unit Levothyroxine Sodium (Levothyroxine 75 Mcg Tab) 150 mcg PO QAM@0630 [facility] Last Admin: 10/25/22 06:18 Dose: 150 mcg Lidocaine HCl (Lidocaine 1% (10mg/Ml) For Iv Start) 0.1 ml INTRADERMA PER PROTOCOL PRN PRN Reason: IV Start Stop: 11/23/22 05:51 Lisinopril (Lisinopril 20 Mg Tab) 40 mg PO BID [facility] Last Admin: 10/25/22 08:18 Dose: 40 mg Magnesium Hydroxide (Magnesium Hydroxide 2,400 Mg/30 Ml Cup) 2,400 mg PO DAILY PRN PRN Reason: Constipation Stop: 11/23/22 09:14 Montelukast Sodium (Montelukast 10 Mg Tab) 10 mg PO QAM [facility] Last Admin: 10/25/22 08:18 Dose: 10 mg Multivitamins (Multivitamins, Thera 1 Each Tab) 1 each PO DAILY [facility] Last Admin: 10/25/22 08:18 Dose: 1 each Naloxone HCl (Naloxone 0.4 Mg/Ml 1 Ml Vial) 0.2 mg IV Q2M PRN PRN Reason: Opioid Reversal Stop: 11/23/22 09:14 Ondansetron HCl (Ondansetron 4 Mg/2 Ml Vial) 4 mg IVP Q8HR PRN PRN Reason: Nausea And Vomiting Stop: 11/23/22 09:14 Senna/Docusate Sodium (Sennosides-Docusate Sodium 1 Each Tab) 2 each PO HS [facility] Stop: 11/23/22 21:01 Last Admin: 10/24/22 21:45 Dose: 2 each Sodium Biphosphate/Sodium Phosphate (Na Phos,M-B/Na Phos,Di-Ba 133 Ml Enema) 133 ml RECTAL DAILY PRN PRN Reason: Constipation Stop: 11/23/22 09:14 Past medical history to include: Asthma, diabetes, GERD, hyperlipidemia, osteoarthritis, obstructive sleep apnea, hypothyroid, scleroderma, migraines, Lynette-en-Y surgery 15 years ago Social history: No smoking or alcohol. Physical examination: VITAL SIGNS: 97.6, 85, 18, 121/73, 96% room air GENERAL: BMI 49.6, laying in bed, tired EYES: Pupils equal. Conjunctiva normal. HEENT: External appearance of nose and ears normal, oral cavity grossly normal. NECK: JVD not raised; masses not palpable. HEART: First and second heart sounds are normal; no edema. LUNGS: Respiratory rate normal; clear to auscultation. ABDOMEN: Soft, nontender, liver spleen not palpable, no masses palpable. PSYCH: Alert and oriented x3; mood and affect normal. MUSCULOSKELETAL:No Clubbing/cyanosis;muscles-grossly intact. Dressing over the left knee. Evidence of OA. INVESTIGATIONS, reviewed in the clinical context: October 25: White count 15.3 hemoglobin 11.4 potassium 4.5 creatinine 0.59 Serum acetone negative Accu-Cheks: 313, 429 Labs from 09/19/2022: White count 10.4 hemoglobin 12.7 platelets 264 potassium 4.5 creatinine 0.9 Assessment and plan: -Left total knee arthroplasty Aspirin 325 mg twice a day for DVT prophylaxis. Pain control. -Diabetes mellitus type 2 chronically on insulin. Uncontrolled with hyperglycemia. As patient insulin pump is malfunctioning. Start the patient on 36 units of Levemir tonight. One-time dose of 20 units of Humalog. And 8 units with meals. Sliding scale insulin. BMP serum acetone ordered. -Morbid obesity BMI 49.6 Patient's previously had a Lynette-en-Y bypass 15 years ago. Weight loss measures. -Primary osteoarthritis Pain medications as needed -Depression not otherwise specified Celexa 40 mg a day -Essential hypertension Vasotec 20 mg twice a day. -Hypothyroid Levothyroxine 150 g a day -Hyperlipidemia Crestor 10 mg a day -Moderate persistent asthma Flovent discus one puff twice a day. Singulair 10 mg a day. Reminded nurse Gemini siegel that I asked the nurse last night to contact the industrial sales representative this morning and given instructions about the pump. It hasn't been done. To pursue the same again. Thank you Dr. Faye . Past Medical History Past Medical History: Asthma, COPD, Diabetes Mellitus, GERD/Reflux, Hyperlipidemia, Osteoarthritis (OA), Sleep Apnea/CPAP/BIPAP, Thyroid Disorder Additional Past Medical History / Comment(s): "Slow digestive tract". Hx pancreatitis. Scleroderma. Migraines. CPAP use. 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 Past Anesthesia/Blood Transfusion Reactions: Family History of Problems w/ Anesthesia, Motion Sickness, Postoperative Nausea & Vomiting (PONV) Additional Past Anesthesia/Blood Transfusion Reaction / Comm: Severe Vertigo. Son went into a coma at age 21, with outpatient surgery, was in ICU for 5 days, has only had twilight since then. Past Psychological History: Depression Smoking Status: Never smoker Past Alcohol Use History: None Reported Past Drug Use History: None Reported - Past Family History Father Family Medical History: Cancer Additional Family Medical History / Comment(s): Prostate cancer. Sister(s) Family Medical History: Cancer Additional Family Medical History / Comment(s): Kidney cancer, skin cancer, leukemia. Mother Family Medical History: Cancer Additional Family Medical History / Comment(s): Colon cancer. Medications and Allergies Home Medications Medication Instructions Recorded Confirmed Type Aspirin EC [Ecotrin Low Dose] 81 mg PO QAM 07/30/18 10/19/22 History Citalopram Hydrobromide [CeleXA] 40 mg PO QAM 07/30/18 10/24/22 History Levothyroxine Sodium 150 mcg PO QAM 07/30/18 10/24/22 History Advair (Unknown Dose) 2 puff INHALATION QAM 10/19/22 10/24/22 History Allergy Relief (Otc) 1 tab PO DAILY 10/19/22 10/24/22 History Calcium, Magnesium, Zinc 1 tab PO DAILY 10/19/22 10/19/22 History Enalapril [Vasotec] 20 mg PO BID 10/19/22 10/24/22 History Fluticasone Propionate [Flovent 1 inhalation INHALATION BID 10/19/22 10/24/22 History Diskus] Insulin Aspart (For Pump) [NovoLOG 0.01 unit SQ-PUMP CONTINUOUS 10/19/22 10/24/22 History (For Pump)] Meclizine [Antivert] 25 mg PO DIRECTED PRN 10/19/22 10/24/22 History Montelukast Sodium 10 mg PO QAM 10/19/22 10/24/22 History Multivitamins, Thera [Multivitamin 1 tab PO DAILY 10/19/22 10/19/22 History (formulary)] Rosuvastatin Calcium 10 mg PO QAM 10/19/22 10/24/22 History Vitamin D (Unknown Dose) 1 tab PO QAM 10/19/22 10/19/22 History Aspirin 325 mg PO BID #60 tab 10/24/22 Rx HYDROcodone/APAP 7.5-325MG [[place] 1 - 2 tab PO Q6H PRN #32 tab 10/24/22 Rx 7.5-325] Sennosides [Senokot] 2 tab PO DAILY PRN #60 tablet 10/24/22 Rx Allergies Allergy/AdvReac Type Severity Reaction Status Date / Time No Known Allergies Allergy Verified 10/24/22 06:03
[2022-10-25] MEDS ORDERED: INSULIN ASPART (NovoLOG) 100 UNIT/ML VIAL SQ SCH (17:30)
[2022-10-25 19:42] LABS: Glucose,Whole Blood 406 mg/dL (70-110)
[2022-10-25 20:04] VITALS: RESP 18
[2022-10-25] MEDS ORDERED: INSULIN PUMP BASAL RATES 1 EACH MISC MISCELLANE PRN (20:29)
[2022-10-25] MEDS ORDERED: INSULIN ASPART (NovoLOG) 100 UNIT/ML VIAL SQ PRN (20:29)
[2022-10-25] MEDS ORDERED: INSPUCOR MISCELLANE PRN (20:29)
[2022-10-25] MEDS ORDERED: INSULIN DETEMIR (LEVEMIR) 100 UNIT/ML SYR SQ SCH (21:00)
[2022-10-25] MEDS: SENNOSIDES-DOCUSATE SODIUM 1 EACH TAB PO SCH (21:49)
[2022-10-25 21:57] LABS: Glucose,Whole Blood 307 mg/dL (70-110)
[2022-10-25] MEDS: INSULIN PUMP MEAL BOLUS 1 UNIT MISC MISCELLANE SCH (22:59)
[2022-10-26] MEDS: HYDROcodone/APAP 7.5-325MG 1 EACH TAB PO PRN ×3 (00:23→15:43)
[2022-10-26 02:22] LABS: Glucose,Whole Blood 300 mg/dL (70-110)
[2022-10-26] MEDS ORDERED: INSPUCOR MISCELLANE PRN ×2 (03:41→03:50)
[2022-10-26] MEDS: SODIUM CHLORIDE 0.9% 1,000 ML IV SCH (05:06)
[2022-10-26] MEDS: LACTATED RINGERS 1,000 ML IV SCH (05:07)
[2022-10-26 06:06] LABS: Glucose,Whole Blood 295 mg/dL (70-110)
[2022-10-26] MEDS: LEVOTHYROXINE 75 MCG TAB PO SCH (06:45)
[2022-10-26] MEDS: INSULIN PUMP MEAL BOLUS 1 UNIT MISC MISCELLANE SCH ×2 (06:47→12:00)
[2022-10-26] MEDS: ASPIRIN 81 MG PO SCH (08:20)
[2022-10-26] MEDS: lisinopriL 20 MG TAB PO SCH (08:31)
[2022-10-26] MEDS: CITALOPRAM HYDROBROMIDE 20 MG TAB PO SCH (08:31)
[2022-10-26] MEDS: ASPIRIN 325 MG TAB PO SCH (08:32)
[2022-10-26] MEDS: ATORVASTATIN 20 MG TAB PO SCH (08:32)
[2022-10-26] MEDS: MONTELUKAST 10 MG TAB PO SCH (08:32)
[2022-10-26] MEDS: MULTIVITAMINS, THERA 1 EACH TAB PO SCH (08:33)
[2022-10-26] MEDS: SYMBICORT 160-4.5 MCG INHALER INHALATION SCH (09:06)
[2022-10-26] MEDS: FLUTICASONE 44 MCG INHALER INHALATION SCH (09:07)
--- NOTE | 2022-10-26 10:55 | P.DS ---
Providers Expected date of discharge: 10/26/22 Attending physician: Saúl Faye Consults: 10/24/22 09:13 Consult Physician Routine Consulting Provider: Luis Alberto Coreas Consult Reason/Comments: medical management Do you want consulting provider notified?: Yes Primary care physician: Aureliano Gonsalez - Discharge Diagnosis(es) (1) Osteoarthritis of left knee Current Visit: Yes Status: Acute (2) Status post total left knee replacement Current Visit: Yes Status: Acute Hospital Course: This is a 62-year-old female with known history of degenerative arthritis of the left knee. The patient presented for evaluation as an outpatient. After discussion and consideration patient elects to proceed with total knee arthroplasty. The patient is seen preoperatively by Dr. Faye and medically cleared for surgery by their primary care physician. Patient is admitted to [facility] on 10/24/2022 for total knee arthroplasty. The procedure is performed without complication or sequelae. The patient is doing well postoperatively. Labs and vital signs are stable on day of discharge. On day of discharge patient's knee incision is healing well. There is minimal erythema. There is no drainage noted at this time. There is minimal soft tissue swelling to the knee. Patient has full foot and ankle motion without difficulty or pain. Calf is soft and nontender to palpation. Neurovascular status to the left lower extremity is intact. Patient is discharged home in good condition. Please see med rec for accurate list of home medications. Plan - Discharge Summary Discharge Rx Participant: Yes New Discharge Prescriptions: New Aspirin 325 mg PO BID #60 tab Sennosides [Senokot] 2 tab PO DAILY PRN #60 tablet PRN Reason: Constipation HYDROcodone/APAP 7.5-325MG [[place] 7.5-325] 1 - 2 tab PO Q6H PRN #32 tab PRN Reason: Pain No Action Citalopram Hydrobromide [CeleXA] 40 mg PO QAM Levothyroxine Sodium 150 mcg PO QAM Aspirin EC [Ecotrin Low Dose] 81 mg PO QAM Rosuvastatin Calcium 10 mg PO QAM Montelukast Sodium 10 mg PO QAM Meclizine [Antivert] 25 mg PO DIRECTED PRN PRN Reason: Vertigo Multivitamins, Thera [Multivitamin (formulary)] 1 tab PO DAILY Calcium, Magnesium, Zinc 1 tab PO DAILY Insulin Aspart (For Pump) [NovoLOG (For Pump)] 0.01 unit SQ-PUMP CONTINUOUS Fluticasone Propionate [Flovent Diskus] 1 inhalation INHALATION BID Advair (Unknown Dose) 2 puff INHALATION QAM Enalapril [Vasotec] 20 mg PO BID Vitamin D (Unknown Dose) 1 tab PO QAM Allergy Relief (Otc) 1 tab PO DAILY Discharge Medication List Aspirin EC [Ecotrin Low Dose] 81 mg PO QAM 07/30/18 [History] Citalopram Hydrobromide [CeleXA] 40 mg PO QAM 07/30/18 [History] Levothyroxine Sodium 150 mcg PO QAM 07/30/18 [History] Advair (Unknown Dose) 2 puff INHALATION QAM 10/19/22 [History] Allergy Relief (Otc) 1 tab PO DAILY 10/19/22 [History] Calcium, Magnesium, Zinc 1 tab PO DAILY 10/19/22 [History] Enalapril [Vasotec] 20 mg PO BID 10/19/22 [History] Fluticasone Propionate [Flovent Diskus] 1 inhalation INHALATION BID 10/19/22 [History] Insulin Aspart (For Pump) [NovoLOG (For Pump)] 0.01 unit SQ-PUMP CONTINUOUS 10/19/22 [History] Meclizine [Antivert] 25 mg PO DIRECTED PRN 10/19/22 [History] Montelukast Sodium 10 mg PO QAM 10/19/22 [History] Multivitamins, Thera [Multivitamin (formulary)] 1 tab PO DAILY 10/19/22 [History] Rosuvastatin Calcium 10 mg PO QAM 10/19/22 [History] Vitamin D (Unknown Dose) 1 tab PO QAM 10/19/22 [History] Aspirin 325 mg PO BID #60 tab 10/24/22 [Rx] Sennosides [Senokot] 2 tab PO DAILY PRN #60 tablet 10/24/22 [Rx] HYDROcodone/APAP 7.5-325MG [[place] 7.5-325] 1 - 2 tab PO Q6H PRN #32 tab 10/26/22 [Rx] Follow up Appointment(s)/Referral(s): [facility],Equipment [NON-STAFF] - As Needed (*Call [facility] once home to arrange delivery of the Continous Passive Motion (CPM) machine. ) Aureliano Gonsalez DO [Primary Care Provider] - [facility] Week [facility] [NON-STAFF] - 1-2 Days ([facility] will call you to schedule your in home physical therapy visits. ) Saúl Faye DO [Doctor of Osteopathic Medicine] - 11/06/22 2:00 pm Activity/Diet/Wound Care/Special Instructions: Weightbearing as tolerated with a walker. CPM 5-6h daily as tolerated. Leave dressing intact. Dressing may be removed by home care nurse or by patient in 7 days. Then change dressing twice daily until follow up. May shower with initial dressing intact and after removal. If dressing become saturated, please remove. Recommend use of compression stockings daily until follow up to help prevent swelling and blood clots. May remove at night before sleeping. Please take aspirin 325mg twice daily for 30 days to prevent blood clots. Please follow up with [facility] and call with any questions or concerns, . Discharge Disposition: TRANSFER TO SNF/ECF
[2022-10-26 11:33] LABS: Glucose,Whole Blood 297 mg/dL (70-110)
[2022-10-26 15:52] VITALS: BP 151/82; PULSE 80; TEMP 98.4
--- NOTE | 2022-10-26 16:43 | P.PN ---
Progress Note - Text Progress Note Date: 10/26/22 - Chief Complaint Left knee surgery - History of Present Illness This is a pleasant 62-year-old patient who follows with Dr. Aurleiano Alejandro. Chronic stable medical conditions include asthma, diabetes, GERD, hyperlipidemia, obstructive sleep apnea uses CPAP, hypothyroid, scleroderma with no medications,. Patient has undergone left total knee arthroplasty. Postprocedure pain is controlled. No nausea vomiting. Later the nurse called me that patient's insulin pump was saying not working. An Accu-Chek's were reading 429. October 25: Significant pain overnight in the left knee. Some nausea. Tired. Some dizziness. Little breakfast today. Adjust dose of insulin. October 26: Patient doing better. Insulin pump working better. She is contacting her final operations technician this morning. Tolerating diet. She is going to rehab at [facility]. Past medical history to include: Asthma, diabetes, GERD, hyperlipidemia, osteoarthritis, obstructive sleep apnea, hypothyroid, scleroderma, migraines, Lynette-en-Y surgery 15 years ago Social history: No smoking or alcohol. Physical examination: VITAL SIGNS: 98.4, 80, 18, 151/82, 97% room air GENERAL: Up in a chair, comfortable EYES: Pupils equal. Conjunctiva normal. HEENT: External appearance of nose and ears normal, oral cavity grossly normal. NECK: JVD not raised; masses not palpable. HEART: First and second heart sounds are normal; no edema. LUNGS: Respiratory rate normal; clear to auscultation. ABDOMEN: Soft, nontender, liver spleen not palpable, no masses palpable. PSYCH: Alert and oriented x3; mood and affect normal. MUSCULOSKELETAL:No Clubbing/cyanosis;muscles-grossly intact. Dressing over the left knee. Evidence of OA. INVESTIGATIONS, reviewed in the clinical context: October 25: White count 15.3 hemoglobin 11.4 potassium 4.5 creatinine 0.59 Serum acetone negative Accu-Cheks: 313, 429 Labs from 09/19/2022: White count 10.4 hemoglobin 12.7 platelets 264 potassium 4.5 creatinine 0.9 Assessment and plan: -Left total knee arthroplasty Aspirin 325 mg twice a day for DVT prophylaxis. Pain control. -Diabetes mellitus type 2 chronically on insulin. Pump Continue with insulin pump. Patient's contacting her final operations technician this morning. -Morbid obesity BMI 49.6 Lynette-en-Y bypass 15 years ago. Weight loss measures. -Primary osteoarthritis Pain medications as needed -Depression not otherwise specified Celexa 40 mg a day -Essential hypertension Vasotec 20 mg twice a day. -Hypothyroid Levothyroxine 150 g a day -Hyperlipidemia Crestor 10 mg a day -Moderate persistent asthma Flovent discus one puff twice a day. Singulair 10 mg a day. Skull so patient. Questions answered. Thank you Dr. Faye .
== END 2022-10-26 16:33 ==
LOC: OR 05:48 → 4SSUR 09:04 → OR 10-26 16:33
PROVIDERS: ATTEND Orthopaedic Surgery
DX: M17.12 Unilateral primary osteoarthritis, left knee (principal); K21.9 Gastro-esophageal reflux disease without esophagitis; E78.5 Hyperlipidemia, unspecified; G47.33 Obstructive sleep apnea (adult) (pediatric); E03.9 Hypothyroidism, unspecified; M34.9 Systemic sclerosis, unspecified; G43.919 Migraine, unspecified, intractable, without status migrainosus; E11.65 Type 2 diabetes mellitus with hyperglycemia; F32.A Depression, unspecified; I10 Essential (primary) hypertension; J45.40 Moderate persistent asthma, uncomplicated; E66.01 Morbid (severe) obesity due to excess calories; Z68.42 Body mass index [BMI] 45.0-49.9, adult; Z80.42 Family history of malignant neoplasm of prostate; Z80.51 Family history of malignant neoplasm of kidney; Z80.6 Family history of leukemia; Z80.0 Family history of malignant neoplasm of digestive organs; Z79.82 Long term (current) use of aspirin; Z79.4 Long term (current) use of insulin; Z79.890 Hormone replacement therapy; Z98.84 Bariatric surgery status; Z79.51 Long term (current) use of inhaled steroids; Z90.49 Acquired absence of other specified parts of digestive tract; Z98.890 Other specified postprocedural states; Z79.891 Long term (current) use of opiate analgesic
CPT/HCPCS: 94640 ×3; 94760; 97116; 97161; 97166; 64999; 64448; 80048 ×2; 82009; 85025; 73560; 27447; C1713; C1776; C1751; J2250; J1100; J0690 ×2; J2405; J1170 ×3; J2795

== ENCOUNTER 2023-02-23 07:47 | Day surgery (SDC) | payer MEDICARE ==
[2023-02-21 09:40] VITALS: BMI 49.4
[~2023-02-23 07:47] MED LIST changes: -ACETAMINOPHEN TAB 500 MG TAB PO PRN; -GABAPENTIN 300 MG CAP PO PRN; +LACTATED RINGERS 1,000 ML IV SCH; -MELOXICAM 7.5 MG TAB PO PRN; -TRANEXAMIC 1,000 MG/100ML-NACL 1,000 MG in SALINE 1 100ML.BAG IVPB PRN; -ceFAZolin 3 GM in SODIUM CHLORIDE 0.9% 100 ML IVPB PRN
[2023-02-23 08:12] LABS: Glucose,Whole Blood 89 mg/dL (70-110)
[2023-02-23 08:15] VITALS: RESP 16; TEMP 97.2
[2023-02-23] MEDS ORDERED: PROPOFOL 10 MG/ML 20 ML VIAL IV ONE (08:28)
--- NOTE | 2023-02-23 08:45 | P.PCN ---
Date of Procedure: 02/23/23 Procedure(s) Performed: BRIEF HISTORY: Patient is a 62-year-old pleasant white female scheduled for an elective colonoscopy as a part of screening for colon cancer and family history of colon cancer. Her mother was diagnosed with colon cancer at age 60. PROCEDURE PERFORMED: Colonoscopy with snare polyp rectum. PREOPERATIVE DIAGNOSIS: Screening for colon cancer and family history of colon cancer. IV sedation per Anesthesia. PROCEDURE: After informed consent was obtained, the patient, was brought into the endoscopy unit. IV sedation was administered by Anesthesia under continuous monitoring. Digital rectal examination was normal. Initially the Olympus CF-160 flexible video colonoscope was then inserted in the rectum, gradually advanced into the cecum without any difficulty. Careful examination was performed as the scope was gradually being withdrawn. Ileocecal valve and the appendiceal orifice were visualized and appeared normal. Prep was excellent. Mucosa of the cecum, appeared normal. In the Ascending colon there was a 5 mm polyp that was removed by cold snare polypectomy. Rest ascending colon, transverse colon, descending colon, sigmoid colon, and rectum appeared normal. Retroflexion was performed in the rectum and no lesions were seen. The patient tolerated the procedure well. IMPRESSION: 5 mm ascending colon polyp status post cold snare polypectomy Rest of the colon appeared normal RECOMMENDATIONS: Findings of this examination were discussed with the patient as well as her family. She was advised to follow with the biopsy results. Recommend repeat colonoscopy in 5 years because of the family history of colon cancer..
[2023-02-23 08:56] LABS: Glucose,Whole Blood 100 mg/dL (70-110)
[2023-02-23 09:31] VITALS: BP 128/69; PULSE 82
== END 2023-02-23 09:29 | disposition home or self-care (01) ==
LOC: ORWHC2ENDO 07:47
PROVIDERS: ATTEND Internal Medicine Gastroenterology
DX: Z12.11 Encounter for screening for malignant neoplasm of colon (principal); K63.5 Polyp of colon; I10 Essential (primary) hypertension; E78.5 Hyperlipidemia, unspecified; J44.9 Chronic obstructive pulmonary disease, unspecified; G47.33 Obstructive sleep apnea (adult) (pediatric); E11.9 Type 2 diabetes mellitus without complications; K74.60 Unspecified cirrhosis of liver; E66.01 Morbid (severe) obesity due to excess calories; Z79.82 Long term (current) use of aspirin; Z79.4 Long term (current) use of insulin; Z79.899 Other long term (current) drug therapy; Z96.652 Presence of left artificial knee joint; Z80.0 Family history of malignant neoplasm of digestive organs; Z90.710 Acquired absence of both cervix and uterus; Z98.890 Other specified postprocedural states; Z68.43 Body mass index [BMI] 50.0-59.9, adult
CPT/HCPCS: 45385; J2704; 88305